=== PATIENT | female | born 2005 | race Caucasian/White ===

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

== ENCOUNTER 2025-04-01 12:23 | Emergency (ER) | payer BC, SELFPAY ==
[2025-04-01 12:36] VITALS: BP 118/77; PULSE 82; RESP 20; TEMP 37.2; O2SAT 100
--- NOTE | 2025-04-01 12:57 | ED.WEAKNESS ---
HPI - Weakness General Chief complaint: Eye Problems Stated complaint: Vision Blurry/Weakness Time Seen by Provider: 04/01/25 12:40 Source: patient, family (Mother) and RN notes reviewed Mode of arrival: ambulatory Limitations: no limitations History of Present Illness HPI Narrative: Patient presents today with a 2-3 day history of generalized weakness, lightheadedness, shakiness, bilateral blurred vision. States her head feels staticky. Reports that her blurred vision occurs for a few seconds that is absent for approximately 1 minute before returning. Visual acuity upon arrival is right eye 20/25, left eye 20/30. She continues to eat and drink well. Denies headache, chest pain, shortness of breath, abdominal pain, nausea, vomiting, diarrhea, urinary symptoms, any recent respiratory illnesses. Related Data Home Medications ?Medication ?Instructions ?Recorded ?Confirmed ?Last Taken ?Type No Home Medications 04/01/25 04/01/25 Unknown History Allergies Allergy/AdvReac Type Severity Reaction Status Date / Time No Known Allergies Allergy Verified 04/01/25 13:22 [facility] Comments At time of signature, I have reviewed and agree with nursing past medical, surgical, social and family history unless otherwise noted. Please see nursing chart for further information. There is no relevant family history pertinent to the presenting complaint Exam Narrative: GENERAL: Well-appearing, well-nourished, and in no acute distress. HEAD: Normocephalic, atraumatic. EYES: EOMI. PERRL. No nystagmus. No redness or drainage. Conjunctivae normal. ENT: Mucous membranes pink and moist. Nares clear. No rhinorrhea. TMs normal bilaterally. Throat normal. Uvula midline. NECK: Normal AROM. Supple. No lymphadenopathy. CHEST: No respiratory distress. Clear to auscultation. HEART: Regular rate and rhythm. No murmur appreciated. Normal peripheral pulses. ABDOMEN: Soft, nontender, nondistended, normal active bowel sounds. EXTREMITIES: Normal range of motion. No edema. Hand head of research & insights equal and strong. 5/5 strength in BLE SKIN: Warm, dry, no rash. Capillary refill normal. Normal skin turgor. NEURO: No focal deficits. Alert and oriented x3. Gait steady. PSYCH: Normal affect. No signs of depression or anxiety. Course Course Level of Care: Express Care Visit Vital Signs Vital signs: Vital Signs Temperature 98.9 F 04/01/25 12:36 Pulse Rate 82 04/01/25 12:36 Respiratory Rate 20 04/01/25 12:36 Blood Pressure 118/77 04/01/25 12:36 Pulse Oximetry 100 04/01/25 12:36 Oxygen Delivery Room Air 04/01/25 12:36 Temperature 98.9 F 04/01/25 12:36 Pulse Rate 82 04/01/25 12:36 Respiratory Rate 20 04/01/25 12:36 Blood Pressure 118/77 04/01/25 12:36 Pulse Oximetry 100 04/01/25 12:36 Oxygen Delivery Room Air 04/01/25 12:36 Reviewed Transfer Transfered to: [place] Transportation: Other (Private vehicle) Transfer rationale: Generalized weakness, lightheadedness, blurred vision Accepting physician: Brigido. Report given to Howard Nowak [facility] - Weakness MDM Narrative Medical decision making narrative: 20-year-old female patient presents with 2-3 day history of generalized weakness, lightheadedness, intermittent revision. Upon arrival, blood sugar was 86 with visual acuity of 20/25 and right eye and 20/30 in left eye. No concerns of . No additional GI, URI or UTI symptoms. She is orally hydrating and eating well. Vital signs are stable. Exam is grossly normal. Patient will be transferred to [facility] to be further evaluated. Differential Diagnosis Differential diagnosis: Likely anemia, hypoglycemia, hypothyroidism, dehydration and other (Electrolyte imbalance) Lab Data Attestation: I reviewed the patient's lab results. Labs: Lab Results 04/01/25 Range/Units 12:37 POC Capillary Glucose 86 (65-105) mg/dl Critical Care Time Critical Care Time Critical Care Time: No Discharge Plan Discharge Clinical Impression: Generalized weakness, Lightheadedness, Blurred vision, bilateral Patient Disposition: Acute Care Hospital Condition: Stable Patient Language: German Prescriptions: No Action No Home Medications Follow-up/Referrals: Freddy,MD Salvatore [Primary Care Provider] - Time of Disposition: 13:00
== END 2025-04-01 13:00 | disposition short-term general hospital (02) ==
PROVIDERS: Emergency Provider Nurse Practitioner; PCP Pediatrics
DX: R53.1 Weakness (principal); R42 Dizziness and giddiness; H53.8 Other visual disturbances
CPT/HCPCS: 82948; 99212; G0463

== ENCOUNTER 2025-04-01 13:12 | Emergency (ER) | payer BC, SELFPAY ==
[2025-04-01] VITALS (19 sets, daily range): BP systolic 102–122; BP diastolic 63–90; PULSE 60–101; RESP 6–33; TEMP 36.4–36.6; O2SAT 95–100
--- OUTSIDE RECORDS SUMMARY | 2025-04-01 13:20 | XMS_ITS | Clinical Summary ---
Author Organization [facility] Address [address] [place] [address] Care Team Providers Care Liner Roll Changer Name Role Phone Salvatore Hayes MD Primary Care Provider [phone] Source Comments [facility],non-owned Affiliates and Associated Physician Practices is amultiple site organization consisting of ambulatory clinics and hospital sitesin [place], [place], [place] and [place]. This disclosure is being madepursuant to the Care Everywhere program and may not contain all information available regarding this patient. Last updated 18.[facility] Allergies No known active allergies Medications * Be aware that medications may not be up to date on this document. Alwaysverify current medications with the patient. 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 Gender Identity Not on file Sexual Orientation Not on file Plan of Treatment Health Maintenance Due Date Last Done Comments HIV SCREENING 2020 HPV VACCINE (1 - 3-dose series) 2020 CHLAMYDIA/GONORRHEA SCREENING 2021 MENINGOCOCCAL (Group B) VACC INE SHARED DECISION-MAKING (1 of 2 - Standard) 2021 HEPATITIS C SCREENING 03/13/2023 DTAP/TDAP/TD VACCINES (1 - Tdap) 2024 HEPATITIS B VACCINE (1 of 3 - 19+ 3-dose series) 2024 COVID-19 VACCINE ( - 2023-2 5 season) 2024 DEPRESSION SCREENING 09/24/2024 INFLUENZA VACCINE (#1) 2025 ZOSTER VACCINE (1 of 2) 2055 HIB VACCINE Aged Out No longer eligi ble based on patient's age to complete this topic MENINGOCOCCAL GROUPS A/C/Y/W VACCINE Aged Out No longer eligible b ased on patient's age to complete this topic PNEUMOCOCCAL VACCINE Aged Out No long er eligible based on patient's age to complete this topic Insurance Care Teams Liner Roll Changer Relationship Specialty Start Date End Date Salvatore Hayes MD [address] [address] PCP - General Pediatrics 12/07/20
[2025-04-01 14:52] LABS: Hematocrit 42.5 % (37.0-47.0); Hemoglobin 13.4 g/dL (12.0-15.0); Immature Granulocyte Percent A 0.2 % (0-0.5); Lymphocytes Absolute Auto 2.54 K/mm3 (0.9-3.2); Mean Corpuscular HGB Conc 31.5 g/dl (32-36); Mean Corpuscular Hemoglobin 29.3 pg (26-34); Mean Corpuscular Volume 92.8 fl (80-100); Nucleated Red Blood Cells Absolute Auto 0.000 K/mm3 (0.0-0.012); Nucleated Red Blood Cells Perc 0.0 % (0.0-0.2); Platelet Count Result 201 k/mm3 (150-375); Red Blood Count 4.58 M/mm3 (4.2-5.4); White Blood Count 4.8 K/mm3 (4.5-10.0)
--- OUTSIDE RECORDS SUMMARY | 2025-04-01 14:58 | XMS_ITS | Clinical Summary ---
Author Organization [facility] Address [address] [place] [address] Care Team Providers Care Crab Fisher Name Role Phone Salvatore Hayes MD Primary Care Provider [phone] Source Comments [facility],non-owned Affiliates and Associated Physician Practices is amultiple site organization consisting of ambulatory clinics and hospital sitesin [place], [place], [place] and [place]. This disclosure is being madepursuant to the Care Everywhere program and may not contain all information available regarding this patient. 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
[2025-04-01 15:00] LABS: Alanine Aminotransferase 18 U/L (6-35); Albumin Level 4.9 g/dL (3.5-5.1); Alkaline Phosphatase 68 U/L (38-126); Anion Gap 10 mmol/L (4-12); Aspartate Amino Transferase 32 U/L (14-36); Bilirubin,Total 0.6 mg/dL (0.2-1.3); Blood Urea Nitrogen 19 mg/dL (7-17); Calcium 9.4 mg/dL (8.4-10.2); Carbon Dioxide 25 mmol/L (22-30); Chloride 103 mmol/L (98-107); Estimated CRCL calculation 77 ml/min; Estimated Glomerular Filt Rate > 60; Glucose 88 mg/dL (65-110); Potassium 3.8 mmol/L (3.4-5.0); Sodium 138 mmol/L (137-145); Total Protein 8.2 g/dL (6.3-8.2)
[2025-04-01] MEDS: LACTATED RINGERS 1,000 ML 999 ML IV CONT ×2 (15:52→16:50)
--- NOTE | 2025-04-01 16:06 | ED_ITS ---
HPI - General Adult General Chief complaint: Dizziness Stated complaint: blurred vision Time Seen by Provider: 04/01/25 14:44 History of Present Illness HPI narrative: 20-year-old female presented to the emergency department for evaluation for increased shaking. Patient reports that she does have shaking at baseline but feel she has had increased tremor over the last few days. Patient denies any coughs colds or fevers. Patient reports she is eating and drinking well. Patient denies any new medication changes. Patient denies any increased anxiety. Patient states she also feels like her brain has been ?static filled ?. Patient is present with her mother. Related Data Allergies Allergy/AdvReac Type Severity Reaction Status Date / Time No Known Allergies Allergy Verified 04/01/25 13:22 Review of Systems 2 Review of Systems: All systems reviewed & are unremarkable except as noted in HPI and below Exam 2 Narrative: APPEARANCE: Well appearing, no pain, no distress, well-nourished. HEAD: normocephalic, atraumatic. EYES: PERRLA/EOMI, conjunctivae clear. NOSE: Normal no drainage EARS:TMS clear with good light reflex. THROAT: Pharynx clear, no exudate. NECK: Supple. No adenopathy, no masses. RESPIRATORY: Airway patent, respirations nonlabored. Clear to auscultation bilaterally, no rales, rhonchi, wheezing. CARDIOVASCULAR: Regular rate and rhythm without murmurs rubs or gallops. ABDOMINAL: Soft, nontender, nondistended, normal bowel sounds MUSCULOSKELETAL: Moves all extremities. Strength/ROM intact, No edema, No calf tenderness. NEURO: Alert. Cranial nerves II through XII intact. Good gait. Good coordination SKIN: Warm, dry. Normal Color Course Vital Signs Vital signs: Vital Signs Temperature 97.6 F 04/01/25 13:20 Pulse Rate 79 04/01/25 13:20 Respiratory Rate 16 04/01/25 13:20 Blood Pressure 122/78 04/01/25 13:20 Pulse Oximetry 99 04/01/25 13:20 Temperature 97.8 F 04/01/25 14:17 Pulse Rate 89 04/01/25 18:01 Respiratory Rate 11 L 04/01/25 18:01 Blood Pressure 121/79 04/01/25 18:01 Pulse Oximetry 100 04/01/25 18:01 Oxygen Delivery Room Air 04/01/25 14:17 Medical Decision Making MDM Narrative Medical decision making narrative: 20-year-old female presents emergency department for evaluation for increased tremor. Patient is currently afebrile with no leukocytosis hemoglobin of 13.4. Patient has no acute abnormalities on her CMP. UA was concerning for urinary tract infection. Patient did feel improved with rehydration. Patient was started on IV Rocephin emergency department be discharged home on Keflex. Differential Diagnosis Differential Diagnosis: Anxiety, dehydration, urinary tract infection, COVID, RSV influenza Vital Signs Vital Signs: Vital Signs Temperature 97.6 F 04/01/25 13:20 Pulse Rate 79 04/01/25 13:20 Respiratory Rate 16 04/01/25 13:20 Blood Pressure 122/78 04/01/25 13:20 Pulse Oximetry 99 04/01/25 13:20 Temperature 97.8 F 04/01/25 14:17 Pulse Rate 89 04/01/25 18:01 Respiratory Rate 11 L 04/01/25 18:01 Blood Pressure 121/79 04/01/25 18:01 Pulse Oximetry 100 04/01/25 18:01 Oxygen Delivery Room Air 04/01/25 14:17 Lab Data Lab results reviewed: Yes I reviewed the patient's lab results. 04/01/25 14:43 04/01/25 14:43 Labs: Lab Results 04/01/25 04/01/25 04/01/25 Range/Units 13:24 14:43 16:48 WBC 4.8 (4.5-10.0) K/mm3 RBC 4.58 (4.2-5.4) M/mm3 Hgb 13.4 (12.0-15.0) g/dL Hct 42.5 (37.0-47.0) % MCV 92.8 (80-100) fl MCH 29.3 (26-34) pg MCHC 31.5 L (32-36) g/dl RDW 12.5 (11.5-14.5) % Plt Count 201 (150-375) k/mm3 MPV 11.2 H (7.4-10.4) fl Immature Gran % (Auto) 0.2 (0-0.5) % Neut % (Auto) 37.5 L (45.5-73.1) % Lymph % (Auto) 53.1 H (18.3-44.2) % [place] % (Auto) 6.9 (2.6-8.5) % Eos % (Auto) 1.5 (0-4.4) % Baso % (Auto) 0.8 (0.2-1.2) % Lymph # (Auto) 2.54 (0.9-3.2) K/mm3 Clarke # (Auto) 0.3 (0.1-0.6) K/mm3 Eos # (Auto) 0.1 (0-0.3) K/mm3 Baso # (Auto) 0.0 (0.0-0.1) K/mm3 Abs Immat Gran (auto) 0.01 (0.00-0.031) K/mm3 Absolute Neuts (auto) 1.8 (1.3-6.7) K/mm3 Absolute Nucleated RBC 0.000 (0.0-0.012) K/mm3 Nucleated RBC % 0.0 (0.0-0.2) % Sodium 138 (137-145) mmol/L Potassium 3.8 (3.4-5.0) mmol/L Chloride 103 (98-107) mmol/L Carbon Dioxide 25 (22-30) mmol/L Anion Gap 10 (4-12) mmol/L BUN 19 H (7-17) mg/dL Creatinine 0.68 L (0.7-1.0) mg/dL Estim Creat Clear Calc 77 ml/min Estimated GFR > 60 (59 - ) Glucose 88 (65-110) mg/dL POC Capillary Glucose 83 (65-105) mg/dl Calcium 9.4 (8.4-10.2) mg/dL Total Bilirubin 0.6 (0.2-1.3) mg/dL AST 32 (14-36) U/L ALT 18 (6-35) U/L Alkaline Phosphatase 68 (38-126) U/L Total Protein 8.2 (6.3-8.2) g/dL Albumin 4.9 (3.5-5.1) g/dL Urine Color Yellow (Yellow) Urine Appearance Cloudy H (Clear) Urine pH 6.5 (5.0-9.0) Ur Specific [place] 1.013 (1.001-1.035) Urine Protein Negative (Negative) mg/dL Urine Glucose (UA) Negative (Negative) mg/dL Urine Ketones Negative (Negative) mg/dL Ur Blood (Man) Negative (Negative) Urine Nitrate Negative (Negative) Urine Bilirubin Negative (Negative) Urine Urobilinogen 0.2 (<2.0) mg/dL Leukocyte Esterase Rfl 2+ H (Negative) MAIA/UL Urine RBC 0-2 (0-2) /hpf Urine WBC 21-50 H (0-3) /hpf Ur Squamous Epith Cells Moderate (Few) /hpf Urine Bacteria 2+ H /hpf Urine Casts 0-2 POC Urine HCG, Qual Negative (Negative) Discharge Plan Discharge Clinical Impression: Tremor, UTI (urinary tract infection) Patient Disposition: Home Condition: Stable Instructions: Antibiotic Form, Urinary Tract Infection in Women (DC), Tremors (ED) Additional Instructions: Drink plenty of fluids. Antibiotics as directed. Have close follow-up with your primary care physician. If you have any worsening symptoms then please call or return to the emergency department. Patient Language: Tajik Prescriptions: New cephalexin 500 mg capsule 500 mg PO Q8H 7 Days Qty: 21 0RF Follow-up/Referrals: Freddy,MD Salvatore [Primary Care Provider] -
[2025-04-01 16:50] LABS: BEDSIDEPREGUCG Negative (Negative)
[2025-04-01 17:11] LABS: Add Urine Microscopic? YES; Appearance Urine Cloudy (Clear); Glucose Urine UA Negative (Negative); Leukocyte Esterase Ur 2+ LEU/UL (Negative); Nitrate Urine Negative (Negative); Non Pathogenic Casts 0-2; Specific Grav Ur 1.013 (1.001-1.035)
[2025-04-01] MEDS: cefTRIAXone 1 GM in SODIUM CHLORIDE 0.9% IV 50 ML 100 ML IVPB (18:13)
== END 2025-04-01 18:38 | disposition home or self-care (01) ==
PROVIDERS: Emergency Provider Emergency Medicine; PCP Pediatrics
DX: R25.1 Tremor, unspecified (principal); N39.0 Urinary tract infection, site not specified
CPT/HCPCS: 36415; 80053; 81001; 81025; 82948; 85025; 96361; 96365; 99284; J0696; J7120